=== PATIENT | male | born 1950 | race Caucasian/White ===

== ENCOUNTER 2018-02-22 08:41 | Emergency (ER) | payer MEDICARE, OTHER ==
[~2018-02-22] VITALS: Ht 180.3 cm; Wt 122.9 kg
[~2018-02-22 08:41] MED LIST: BUPR150ER PO; Bactrim Ds Tab1 EACH PO; CEPH500 PO; CETI10 PO; CITA20; CITA20 PO; FURO20 PO; ISOMON60ER PO; LISHYD2025 PO; LISI20 PO; LISI5; MECL25 PO; METHYLFOLATE PO; METO100ER PO; METO25ER; METO25ER PO; METO50ER PO; METPRE4DP PO; OMEP20ER PO; Omeprazole20 M1 PO; POTCHL20ER PO; PRAV20 PO; SPIR25 PO; WARF1; WARF10 PO; WARF2 PO; WARF5 PO; WARF7.5 PO
[2018-02-22 10:46] LABS: International Normalized Ratio 1.46; Prothrombin Time Results 14.7 Sec (9.7-11.5)
== END 2018-02-22 12:21 | disposition home or self-care (01) ==
LOC: ER 08:41
PROVIDERS: Physician Assistant
DX: L03.211 Cellulitis of face (principal); L03.811 Cellulitis of head [any part, except face]; Z79.899 Other long term (current) drug therapy; Z79.01 Long term (current) use of anticoagulants; I48.91 Unspecified atrial fibrillation; I10 Essential (primary) hypertension; E78.5 Hyperlipidemia, unspecified; F17.210 Nicotine dependence, cigarettes, uncomplicated; Z85.46 Personal history of malignant neoplasm of prostate
CPT/HCPCS: 36415; 85610; 96365; 96375; 99283-25; J0696; J1100

== ENCOUNTER 2021-11-26 08:48 | Emergency (ER) | payer MEDICARE, OTHER ==
[~2021-11-26] VITALS: Ht 180.3 cm; Wt 134.7 kg
[2021-11-26] MEDS ORDERED: CYCL10 PO (11:52)
[2021-11-26] MEDS ORDERED: Norco 5-325 Ta1 EACH PO (11:52)
== END 2021-11-26 12:21 | disposition home or self-care (01) ==
LOC: ER 08:48
DX: S39.012A Strain of muscle, fascia and tendon of lower back, initial encounter (principal); X50.0XXA Overexertion from strenuous movement or load, initial encounter
CPT/HCPCS: 99283; A9270

== ENCOUNTER 2021-12-15 13:41 | Emergency (ER) | payer MEDICARE, OTHER ==
[~2021-12-15] VITALS: Ht 180.3 cm; Wt 136.1 kg
[~2021-12-15 13:41] MED LIST changes: +CYCL10 PO; +Norco 5-325 Ta1 EACH PO
[2021-12-15 15:10] LABS: Prothrombin Time Results 55.5 Sec (9.7-11.5)
[2021-12-15 15:15] LABS: International Normalized Ratio 5.94
== END 2021-12-15 16:22 | disposition home or self-care (01) ==
LOC: ER 13:41
PROVIDERS: Physician Assistant
DX: K08.89 Other specified disorders of teeth and supporting structures (principal); R79.1 Abnormal coagulation profile; Z79.01 Long term (current) use of anticoagulants; Z79.899 Other long term (current) drug therapy
CPT/HCPCS: 36415; 85610

== ENCOUNTER 2021-12-16 19:25 | Emergency (ER) | payer MEDICARE, OTHER ==
[~2021-12-16] VITALS: Ht 180.3 cm; Wt 136.1 kg
== END 2021-12-16 21:13 | disposition home or self-care (01) ==
LOC: ER 19:25
DX: D68.69 Other thrombophilia (principal); K06.8 Other specified disorders of gingiva and edentulous alveolar ridge; I10 Essential (primary) hypertension; E78.5 Hyperlipidemia, unspecified; G47.33 Obstructive sleep apnea (adult) (pediatric); F17.210 Nicotine dependence, cigarettes, uncomplicated; I48.91 Unspecified atrial fibrillation; Z79.899 Other long term (current) drug therapy; Z79.01 Long term (current) use of anticoagulants
CPT/HCPCS: 99282

== ENCOUNTER → 2022-07-02 | Outpatient (CLI) | payer MEDICARE, OTHER | END | disposition home or self-care (01) | LOC: PLD 08:51 → LAB SHORT 08:51 → LAB 08:51 | DX: L82.1 Other seborrheic keratosis (principal) | CPT/HCPCS: 88305 ==